=== PATIENT | male | born 1965 | race African-American/Black ===

== ENCOUNTER 2021-10-05 11:41 | Emergency (ER) | payer OTHER ==
[~2021-10-05] VITALS: Ht 177.8 cm; Wt 86.1 kg
[2021-10-05] MEDS ORDERED: GENTAMICIN SULF5 ML OS (12:37)
[2021-10-05 13:03] VITALS: BP 155/97
== END 2021-10-05 13:19 | disposition home or self-care (01) | DRG 125 ==
LOC: ED 11:41
DX: S05.02XA Injury of conjunctiva and corneal abrasion without foreign body, left eye, initial encounter (principal); E11.9 Type 2 diabetes mellitus without complications; F17.200 Nicotine dependence, unspecified, uncomplicated; X58.XXXA Exposure to other specified factors, initial encounter; Y93.89 Activity, other specified; Y92.89 Other specified places as the place of occurrence of the external cause; Y99.0 Civilian activity done for income or pay